=== PATIENT | female | born 2000 | race Caucasian/White ===

== ENCOUNTER → 2020-08-02 | Outpatient (CLI) | payer SELFPAY ==
[~2020-08-02] MED LIST: ACET1TAB15 PO; CLIN1GEL19 TOP; DOK1CAP7; FERR1TAB8; IBUP80TA; OMEP-221; [UNRECOGNIZED DRUG - CODE] TOP
== END ==
LOC: M LABSMTC 11:11
PROVIDERS: ATTEND Anesthesiology
DX: Z01.812 Encounter for preprocedural laboratory examination (principal); Z20.822 Contact with and (suspected) exposure to COVID-19

== ENCOUNTER 2020-08-07 06:34 | Day surgery (SDC) | payer BC, MEDICAID ==
[~2020-08-07] VITALS: Ht 160 cm; Wt 115.7 kg
[2020-08-07] MEDS ORDERED: propofoL 200 MG/20 ML VIAL As Ordered ONE (07:12)
[2020-08-07] MEDS ORDERED: LIDOCAINE 2% 100MG/5ML SDV (FOR ANES.) As Ordered ONE (07:12)
[2020-08-07] MEDS ORDERED: ROCURONIUM BROMIDE 50 MG/5 ML VIAL As Ordered ONE (07:12)
[2020-08-07] MEDS ORDERED: fentaNYL 250 MCG/5 ML INJECTION (J3010) As Ordered ONE (07:12)
[2020-08-07] MEDS ORDERED: MIDAZOLAM INJ 2MG/2ML VIAL (J2250 PER 1MG) As Ordered ONE (07:13)
[2020-08-07] MEDS ORDERED: LIDOCAINE W/EPINEPHRINE 1% 20ML VIAL As Ordered ONE (07:53)
[2020-08-07] MEDS ORDERED: BUPIVACAINE/EPIN 0.5% 30 ML VIAL As Ordered ONE (07:53)
[2020-08-07] MEDS ORDERED: ONDANSETRON 4MG/2ML VIAL As Ordered ONE (08:14)
[2020-08-07] MEDS ORDERED: dexameTHASONE 4 MG/ML 1ML VIAL (J1100 PER 1MG) As Ordered ONE (08:15)
[2020-08-07] MEDS ORDERED: KETOROLAC 60MG 2ML VIAL As Ordered ONE (08:15)
[2020-08-07] MEDS ORDERED: SUGAMMADEX SODIUM 500 MG/5 ML VIAL (BRIDION) As Ordered ONE (08:20)
[2020-08-07] MEDS ORDERED: ACETAMINOPHEN 1000MG 100ML IV BTL (OFIRMEV) (J0131 PER 10MG) As Ordered ONE (08:21)
[2020-08-07] MEDS ORDERED: oxyCODONE 5MG TAB PO PRN (09:00)
[2020-08-07] MEDS ORDERED: LR 1,000 ML IV SCH (09:00)
[2020-08-07] MEDS ORDERED: fentaNYL 100 MCG/2 ML INJECTION (J3010) IV PRN (09:00)
[2020-08-07] MEDS ORDERED: ONDANSETRON 4MG/2ML VIAL IV PRN (09:00)
[2020-08-07] MEDS ORDERED: NORCO, ANEXSIA 5/325MG TABLET (HYDROcodone/ACETAMINOPHEN) PO PRN (09:05)
--- NOTE | 2020-08-07 09:10 | RO ---
OPERATIVE NOTE DATE OF OPERATION: 08/07/2020 PREOPERATIVE DIAGNOSIS: Chronic tonsillitis. POSTOPERATIVE DIAGNOSIS: Chronic tonsillitis. PROCEDURE: Tonsillectomy. SURGEON: Andres Carty M.D. [employer] DEVELOPER: None. ANESTHESIA: General. DESCRIPTION OF PROCEDURE: Under general anesthesia, the patient was intubated and Gutierrez-Merritt mouth gag was inserted. The tonsil area was infiltrated with lidocaine and 0.5% Marcaine. I used cautery to dissect the tonsil free from its bed on both sides. The base, apex, and where there were vessels were cauterized. The same procedure was performed on both sides. Less than 1 mL estimated blood loss. The patient tolerated the procedure well. Patient extubated and transferred to the recovery room in excellent condition.
[2020-08-07 09:52] VITALS: BP 151/92
== END 2020-08-07 10:32 | disposition home or self-care (01) ==
LOC: M SDC 06:34
PROVIDERS: ATTEND Otolaryngology
DX: J35.01 Chronic tonsillitis (principal); K21.9 Gastro-esophageal reflux disease without esophagitis; K58.8 Other irritable bowel syndrome; Z79.899 Other long term (current) drug therapy; Z91.041 Radiographic dye allergy status
CPT/HCPCS: 42826; 81025; 88302; J0131; J1100; J1885; J2250; J2405; J3010

== ENCOUNTER → 2023-08-20 | Outpatient (REF) | payer BC, MEDICAID ==
[~2023-08-20] MED LIST changes: +DOK1CAP4; -DOK1CAP7; -OMEP-221; +OMEP40CA5
== END ==
LOC: M LAB REF 15:16
PROVIDERS: ATTEND Surgery
DX: D48.5 Neoplasm of uncertain behavior of skin (principal); D17.22 Benign lipomatous neoplasm of skin and subcutaneous tissue of left arm

== ENCOUNTER → 2024-02-09 | Outpatient (REF) | payer BC, OTHER, MEDICAID | LOC: M SFHCDERM 08:17 | PROVIDERS: ATTEND Physician Assistant | DX: D48.5 Neoplasm of uncertain behavior of skin (principal) ==

== ENCOUNTER → 2024-10-24 | Outpatient (REF) | payer BC, MEDICAID, OTHER | LOC: M SFHCDERM 17:54 | PROVIDERS: ATTEND Physician Assistant | DX: D22.4 Melanocytic nevi of scalp and neck (principal) ==